=== PATIENT | male | born 1990 | race African-American/Black ===

== ENCOUNTER 2020-03-24 11:11 | Emergency (ER) | payer OTHER ==
[~2020-03-24] VITALS: Ht 182.9 cm; Wt 111.4 kg
[2020-03-24 11:19] VITALS: TEMP 97.8
[2020-03-24] MEDS ORDERED: DOXYCYCLINE HY100 MG PO (11:55)
[2020-03-24 12:20] VITALS: BP 139/97; PULSE 74
== END 2020-03-24 12:20 | disposition home or self-care (01) ==
LOC: COL.ER 11:11
DX: G56.01 Carpal tunnel syndrome, right upper limb (principal); L73.9 Follicular disorder, unspecified

== ENCOUNTER 2021-03-20 04:46 | Emergency (ER) | payer SELFPAY ==
[~2021-03-20] VITALS: Ht 182.9 cm; Wt 118.2 kg
[~2021-03-20 04:46] MED LIST: DOXYCYCLINE HY100 MG PO
[2021-03-20] MEDS ORDERED: ROBAXIN 75750 MG/TAB PO (05:11)
[2021-03-20 05:37] VITALS: BP 138/93; PULSE 75; TEMP 98.4
== END 2021-03-20 05:37 | disposition home or self-care (01) ==
LOC: COL.ER 04:46
DX: S29.012A Strain of muscle and tendon of back wall of thorax, initial encounter (principal); S46.912A Strain of unspecified muscle, fascia and tendon at shoulder and upper arm level, left arm, initial encounter
CPT/HCPCS: J1885

== ENCOUNTER → 2021-04-06 | Outpatient (CLI) | payer OTHER ==
[~2021-04-06] MED LIST changes: +ROBAXIN 75750 MG/TAB PO
== END ==
LOC: COL.RAD 08:32
DX: M50.21 Other cervical disc displacement, high cervical region (principal); M48.02 Spinal stenosis, cervical region; M25.78 Osteophyte, vertebrae